=== PATIENT | female | born 1975 | race Hispanic/Latino ===

== ENCOUNTER 2020-01-12 22:06 | Emergency (ER) | payer OTHER ==
[~2020-01-12 22:06] MED LIST: 0.9% SODIUM CHLORIDE 1000 ML IV BAG IV ONE
[2020-01-12] MEDS ORDERED: KETOROLAC TROMETHAMINE 30MG/ML ONE (22:16)
[2020-01-12] MEDS ORDERED: CYCLOBENZAPRINE HCL 10 MG TABLET ONE (22:16)
[2020-01-12 22:31] LABS: BASOPHILS % (AUTO) 0.6 % (0.0-5.0); EOSINOPHILS % (AUTO) 2.9 % (0.0-8.0); HEMATOCRIT 37.7 % (36-48); LYMPHOCYTES % (AUTO) 32.7 % (21.0-51.0); MEAN CORPUSCULAR HEMOGLOBIN 26.6 pg (27.0-33.0); MEAN CORPUSCULAR HGB CONC 32.4 g/dL (32.0-36.0); MEAN CORPUSCULAR VOLUME 82.1 fL (79-99); MONOCYTES % (AUTO) 7.4 % (3.0-13.0); NEUTROPHILS % (AUTO) 56.1 % (40.0-77.0); PLATELET COUNT (AUTO) 327 K/uL (130-400); RED BLOOD CELL COUNT(AUTO) 4.59 MIL/uL (4.00-5.50); RED CELL DISTRIBUTION WIDTH 14.5 % (11.0-15.5); WHITE BLOOD COUNT (AUTO) 8.9 K/uL (4.8-10.8)
[2020-01-12 22:40] LABS: APPEARANCE,URINE Clear (CLEAR); BILIRUBIN,URINE Negative (NEGATIVE); COLOR,URINE Yellow (YELLOW); GLUCOSE, URINE (UA) >=1000 mg/dL (NEGATIVE); KETONES,URINE Trace mg/dL (NEGATIVE); LEUKOCYTE ESTERASE ,URINE Negative (NEGATIVE); NITRATE,URINE Negative (NEGATIVE); OCCULT BLOOD,URINE Negative (NEGATIVE); PH,URINE 5.5 (5.0-8.0); PROTEIN,URINE Negative (NEGATIVE)
[2020-01-12 22:41] LABS: CREATININE 0.9 mg/dL (0.5-1.5); POTASSIUM 3.6 mmol/L (3.5-5.1)
[2020-01-12 22:42] LABS: INR 0.89 (0.85-1.15); PARTIAL THROMBOPLASTIN TIME 23.3 SEC (26.3-35.5); PROTHROMBIN TIME 9.7 SEC (9.6-11.6)
[2020-01-12 22:46] LABS: ALBUMIN 3.5 g/dL (3.5-5.0); BILIRUBIN,TOTAL 0.4 mg/dL (0.2-1.0); TOTAL PROTEIN, SERUM 7.8 g/dL (6.0-8.3)
[2020-01-12 22:48] LABS: BACTERIA,URINE None Seen /HPF (None Seen); RBC,URINE None Seen /HPF (0-1); SQUAMOUS EPITHELIAL CELL,UR Few /HPF (0-2); WBC,URINE None Seen /HPF (0-1); YEAST,URINE BUDDING None Seen /HPF (None Seen)
== END 2020-01-13 00:37 | disposition home or self-care (01) ==
LOC: EDH 22:06
DX: M94.0 Chondrocostal junction syndrome [Tietze] (principal); E08.9 Diabetes mellitus due to underlying condition without complications; R03.0 Elevated blood-pressure reading, without diagnosis of hypertension; E66.01 Morbid (severe) obesity due to excess calories; Z90.49 Acquired absence of other specified parts of digestive tract
CPT/HCPCS: 36415; 71045; 80053; 81001; 82550; 83690; 84484; 85025; 85610; 85730; 93005; 96361; 96374; 99285; J1885; J7030; 96372

== ENCOUNTER 2020-03-18 21:36 | Emergency (ER) | payer OTHER, SELFPAY ==
[2020-03-18] MEDS ORDERED: ALBUTEROL INHALER 90MCG/INH IH ONE ×2 (22:17→22:20)
[2020-03-18] MEDS ORDERED: DEXAMETHASONE SOD PHOSPHATE 10MG/ML 1ML VIAL ONE (22:20)
[2020-03-18] MEDS ORDERED: ASPIRIN 325 MG TABLET ONE (22:21)
[2020-03-18] MEDS ORDERED: AZITHROMYCIN 250 MG TABLET PO ONE ×2 (22:22→22:32)
[2020-03-18] MEDS ORDERED: ACETAMINOPHEN-CODEINE 300/30MG TAB ONE (22:25)
[2020-03-18] MEDS ORDERED: NIFEDIPINE 10 MG CAP ONE (22:33)
[2020-03-18 23:23] LABS: BASOPHILS % (AUTO) 0.2 % (0.0-5.0); EOSINOPHILS % (AUTO) 2.4 % (0.0-8.0); HEMATOCRIT 39.4 % (36-48); LYMPHOCYTES % (AUTO) 34.9 % (21.0-51.0); MEAN CORPUSCULAR HEMOGLOBIN 26.2 pg (27.0-33.0); MEAN CORPUSCULAR HGB CONC 32.5 g/dL (32.0-36.0); MEAN CORPUSCULAR VOLUME 80.7 fL (79-99); MONOCYTES % (AUTO) 7.3 % (3.0-13.0); PLATELET COUNT (AUTO) 268 K/uL (130-400); RED BLOOD CELL COUNT(AUTO) 4.88 MIL/uL (4.00-5.50); RED CELL DISTRIBUTION WIDTH 14.5 % (11.0-15.5)
[2020-03-18 23:31] LABS: CREATININE 0.7 mg/dL (0.5-1.5); POTASSIUM 4.1 mmol/L (3.5-5.1)
[2020-03-18 23:36] LABS: ALBUMIN 3.5 g/dL (3.5-5.0); BILIRUBIN,TOTAL 0.2 mg/dL (0.2-1.0); TOTAL PROTEIN, SERUM 7.9 g/dL (6.0-8.3)
== END 2020-03-19 | disposition home or self-care (01) ==
LOC: EDH 21:36
DX: U07.1 COVID-19 (principal); E11.65 Type 2 diabetes mellitus with hyperglycemia; R03.0 Elevated blood-pressure reading, without diagnosis of hypertension; Z90.49 Acquired absence of other specified parts of digestive tract
CPT/HCPCS: 36415; 71045; 80053; 82550; 82948; 84484; 85025; 87426; 93005; 96374; 96375; 99285; J1100

== ENCOUNTER 2021-04-09 20:11 | Emergency (ER) | payer OTHER ==
[~2021-04-09] VITALS: Ht 152.4 cm; Wt 77.1 kg
[2021-04-09 20:58] LABS: BASOPHILS % (AUTO) 0.4 % (0.0-5.0); EOSINOPHILS % (AUTO) 3.4 % (0.0-8.0); HEMATOCRIT 37.4 % (36-48); LYMPHOCYTES % (AUTO) 24.3 % (21.0-51.0); MEAN CORPUSCULAR HEMOGLOBIN 25.8 pg (27.0-33.0); MEAN CORPUSCULAR HGB CONC 31.6 g/dL (32.0-36.0); MEAN CORPUSCULAR VOLUME 81.7 fL (79-99); MONOCYTES % (AUTO) 4.6 % (3.0-13.0); PLATELET COUNT (AUTO) 319 K/uL (130-400); RED BLOOD CELL COUNT(AUTO) 4.58 MIL/uL (4.00-5.50); RED CELL DISTRIBUTION WIDTH 14.8 % (11.0-15.5); WHITE BLOOD COUNT (AUTO) 12.2 K/uL (4.8-10.8)
[2021-04-09] MEDS ORDERED: ORPHENADRINE CITRATE 30 MG/ML ML IV ONE (21:00)
[2021-04-09] MEDS ORDERED: 0.9%NACL 1000ML 1,000 ML IV ONE (21:00)
[2021-04-09] MEDS ORDERED: KETOROLAC 30MG VIAL (30MG/ML) IV ONE (21:00)
[2021-04-09] MEDS ORDERED: PROMETHAZINE/CODEINE 6.25-10MG/5ML CUP PO ONE (21:00)
[2021-04-09 21:19] LABS: ALBUMIN 3.5 g/dL (3.5-5.0); BILIRUBIN,TOTAL 0.4 mg/dL (0.2-1.0); CREATININE 0.6 mg/dL (0.5-1.5); POTASSIUM 3.8 mmol/L (3.5-5.1); TOTAL PROTEIN, SERUM 7.9 g/dL (6.0-8.3)
[2021-04-09] MEDS ORDERED: LIDOCAINE HCL 2% VISCOUS 15 ML UDCUP PO ONE (23:30)
[2021-04-09] MEDS ORDERED: MAG/ALUM/SIMETH 30 ML UDCUP PO ONE (23:30)
[2021-04-09] MEDS ORDERED: CEFTRIAXONE 1G VIAL IVP ONE (23:30)
[2021-04-09] MEDS ORDERED: AZITHROMYCIN 500MG+NS 250ML 250 ML IV ONE (23:30)
[2021-04-09] MEDS ORDERED: AZITHROMYCIN 500MG+NS 250ML IVPB ONE (23:30)
[2021-04-10] MEDS ORDERED: ALBU8.5H8 IH (00:32)
[2021-04-10] MEDS ORDERED: AZIT250T9 PO (00:32)
[2021-04-10] MEDS ORDERED: BENZ-39 PO (00:32)
[2021-04-10] MEDS ORDERED: MELO7.5T12 PO (00:34)
[2021-04-10] MEDS ORDERED: CYCL-309 PO (00:34)
[2021-04-10 01:25] VITALS: BP 128/76
== END 2021-04-10 01:26 | disposition home or self-care (01) ==
LOC: EDH 20:11
DX: J18.9 Pneumonia, unspecified organism (principal); Z20.822 Contact with and (suspected) exposure to COVID-19; E11.9 Type 2 diabetes mellitus without complications; I10 Essential (primary) hypertension; Z79.1 Long term (current) use of non-steroidal anti-inflammatories (NSAID)
CPT/HCPCS: 36415; 71045; 80053; 84484; 85025; 87635; 87804 ×2; 93005; 96365; 96375; 99285; C9803; J0456; J0696; J1885; J2360; J7030; Q0169

== ENCOUNTER 2021-04-19 19:54 | Emergency (ER) | payer OTHER ==
[~2021-04-19] VITALS: Ht 160 cm; Wt 92.8 kg
[~2021-04-19 19:54] MED LIST changes: -0.9% SODIUM CHLORIDE 1000 ML IV BAG IV ONE; +ALBU8.5H8 IH; +AZIT250T9 PO; +BENZ-39 PO; +CYCL-309 PO; +MELO7.5T12 PO
[2021-04-19] MEDS ORDERED: 0.9%NACL 1000ML 1,000 ML IV ONE ×2 (19:55→22:30)
[2021-04-19 20:13] LABS: BASOPHILS % (AUTO) 0.2 % (0.0-5.0); HEMATOCRIT 38.2 % (36-48); LYMPHOCYTES % (AUTO) 6.8 % (21.0-51.0); MEAN CORPUSCULAR HEMOGLOBIN 25.9 pg (27.0-33.0); MEAN CORPUSCULAR HGB CONC 31.4 g/dL (32.0-36.0); MEAN CORPUSCULAR VOLUME 82.5 fL (79-99); MONOCYTES % (AUTO) 1.5 % (3.0-13.0); NEUTROPHILS % (AUTO) 90.8 % (40.0-77.0); PLATELET COUNT (AUTO) 402 K/uL (130-400); RED BLOOD CELL COUNT(AUTO) 4.63 MIL/uL (4.00-5.50); RED CELL DISTRIBUTION WIDTH 14.6 % (11.0-15.5); WHITE BLOOD COUNT (AUTO) 15.1 K/uL (4.8-10.8)
[2021-04-19 21:09] LABS: APPEARANCE,URINE Clear (CLEAR); BILIRUBIN,URINE Negative (NEGATIVE); COLOR,URINE Yellow (YELLOW); GLUCOSE, URINE (UA) 500 mg/dL (NEGATIVE); KETONES,URINE Trace mg/dL (NEGATIVE); LEUKOCYTE ESTERASE ,URINE Trace (NEGATIVE); NITRATE,URINE Negative (NEGATIVE); OCCULT BLOOD,URINE Large (NEGATIVE); PH,URINE 5.5 (5.0-8.0); PROTEIN,URINE Negative (NEGATIVE); UROBILINOGEN,URINE 0.2 mg/dL (0.2-1.0)
[2021-04-19 21:15] LABS: BACTERIA,URINE Few /HPF (None Seen); MUCUS,URINE Rare LPF (None Seen); SQUAMOUS EPITHELIAL CELL,UR Few /HPF (0-2)
[2021-04-19 21:15] LABS: CREATININE 0.7 mg/dL (0.5-1.5); POTASSIUM 4.1 mmol/L (3.5-5.1)
[2021-04-19 21:20] LABS: ALBUMIN 3.7 g/dL (3.5-5.0); BILIRUBIN,TOTAL 0.4 mg/dL (0.2-1.0); TOTAL PROTEIN, SERUM 7.9 g/dL (6.0-8.3)
[2021-04-19] MEDS ORDERED: MORPHINE 2 MG SYG IVP ONE (21:30)
[2021-04-19] MEDS ORDERED: ONDANSETRON 4MG INJ IVP ONE (21:30)
[2021-04-19] MEDS ORDERED: KETOROLAC 15MG/ML VIAL (15MG/ML) IV ONE (21:30)
[2021-04-19 22:40] VITALS: BP 155/87
[2021-04-19] MEDS: BENZONATATE 100 MG CAPSULE PO SCH ×2 (22:42→22:54)
[2021-04-19] MEDS ORDERED: KETOROLAC 15MG/ML VIAL (15MG/ML) ONE (22:46)
[2021-04-19] MEDS ORDERED: ONDANSETRON 4MG INJ ONE (22:46)
[2021-04-19] MEDS ORDERED: MORPHINE 2 MG SYG ONE (22:46)
[2021-04-19] MEDS ORDERED: BENZ-39 PO (23:16)
[2021-04-19] MEDS ORDERED: METH32TA PO (23:16)
[2021-04-19] MEDS ORDERED: ALBU8.5H8 IH (23:16)
[2021-04-19] MEDS ORDERED: PREDNISONE 20 MG TABLET PO ONE (23:30)
== END 2021-04-19 23:39 | disposition home or self-care (01) ==
LOC: EDH 19:54
DX: J40 Bronchitis, not specified as acute or chronic (principal); I10 Essential (primary) hypertension; E11.9 Type 2 diabetes mellitus without complications; Z20.822 Contact with and (suspected) exposure to COVID-19; Z79.899 Other long term (current) drug therapy
CPT/HCPCS: 36415; 71045; 71275; 80053; 81001; 83605; 84484; 85025; 85378; 87635; 93005; 96361; 96374; 96375; 99285; C9803; J1885; J2405; J7030

== ENCOUNTER 2021-11-16 11:15 | Emergency (ER) | payer OTHER ==
[~2021-11-16] VITALS: Ht 165.1 cm; Wt 90.7 kg
[~2021-11-16 11:15] MED LIST changes: +METH32TA PO
[2021-11-16] MEDS ORDERED: AZITHROMYCIN 250 MG TABLET PO ONE (11:30)
[2021-11-16] MEDS ORDERED: BUDESONIDE 0.5 MG/2 ML INH IH SCH (11:30)
[2021-11-16] MEDS ORDERED: IPRATROPIUM/ALBUTEROL SULFATE 3 ML SOLUTION IH ONE (11:30)
[2021-11-16] MEDS ORDERED: AMOX/CLAV 875/125MG TAB PO ONE (11:30)
[2021-11-16] MEDS ORDERED: GUAIFENESIN-CODEINE 5 ML SYRUP PO ONE (11:30)
[2021-11-16 11:54] LABS: BASOPHILS % (AUTO) 0.5 % (0.0-5.0); EOSINOPHILS % (AUTO) 4.7 % (0.0-8.0); HEMATOCRIT 41.1 % (36-48); LYMPHOCYTES % (AUTO) 22.8 % (21.0-51.0); MEAN CORPUSCULAR HEMOGLOBIN 26.6 pg (27.0-33.0); MEAN CORPUSCULAR HGB CONC 32.4 g/dL (32.0-36.0); MEAN CORPUSCULAR VOLUME 82.2 fL (79-99); MONOCYTES % (AUTO) 6.4 % (3.0-13.0); NEUTROPHILS % (AUTO) 65.4 % (40.0-77.0); PLATELET COUNT (AUTO) 304 K/uL (130-400); RED CELL DISTRIBUTION WIDTH 14.6 % (11.0-15.5); WHITE BLOOD COUNT (AUTO) 6.6 K/uL (4.8-10.8)
[2021-11-16 12:02] LABS: CREATININE 0.8 mg/dL (0.5-1.5); POTASSIUM 4.1 mmol/L (3.5-5.1)
[2021-11-16 12:07] LABS: ALBUMIN 3.6 g/dL (3.5-5.0); TOTAL PROTEIN, SERUM 7.9 g/dL (6.0-8.3)
[2021-11-16] MEDS ORDERED: ACETAMINOPHEN 500 MG TABLET PO ONE (12:30)
[2021-11-16] MEDS ORDERED: D-ME1POW16 PO (12:33)
[2021-11-16] MEDS ORDERED: ALBU1.252 IH (12:33)
[2021-11-16] MEDS ORDERED: AMOX1TAB16 PO (12:33)
[2021-11-16] MEDS ORDERED: FLUT1DIS IH (12:33)
[2021-11-16] MEDS ORDERED: ALBU8.5H8 IH (12:33)
[2021-11-16 12:58] VITALS: BP 129/76
== END 2021-11-16 13:03 | disposition home or self-care (01) ==
LOC: EDH 11:15
DX: J40 Bronchitis, not specified as acute or chronic (principal); E11.9 Type 2 diabetes mellitus without complications; E66.9 Obesity, unspecified; Z68.33 Body mass index [BMI] 33.0-33.9, adult; Z20.822 Contact with and (suspected) exposure to COVID-19; I10 Essential (primary) hypertension; Z79.899 Other long term (current) drug therapy; Z90.89 Acquired absence of other organs; Z98.890 Other specified postprocedural states
CPT/HCPCS: 99284; 71045; 87635; 84484; 80053; 85025; 36415; 94640; C9803

== ENCOUNTER 2023-01-24 10:55 | Emergency (ER) | payer OTHER ==
[~2023-01-24] VITALS: Ht 165.1 cm; Wt 86.2 kg
[~2023-01-24 10:55] MED LIST changes: +AEC81 PO; +ALBU1.252 IH; +ALBUHFA IH; +AMLO5TAB4 PO; -AZIT250T9 PO; -BENZ-39 PO; +FLUT1DIS IH; +LOSA50TA64 PO; -MELO7.5T12 PO; +METF-444 PO; -METH32TA PO; +METO25TA3 PO; +PRED20B PO
[2023-01-24 13:41] LABS: BASOPHILS # (AUTO) 0.02 K/uL (0.00-0.20); BASOPHILS % (AUTO) 0.4 % (0.0-5.0); EOSINOPHILS # (AUTO) 0.22 K/uL (0.00-0.70); EOSINOPHILS % (AUTO) 4.1 % (0.0-8.0); HEMATOCRIT 40.9 % (36-48); IMMATURE GRANULOCYTE ABSOLUTE 0.01 K/uL (0-1); LYMPHOCYTES # (AUTO) 1.6 K/uL (1.0-4.8); LYMPHOCYTES % (AUTO) 29.8 % (21.0-51.0); MEAN CORPUSCULAR HEMOGLOBIN 28.9 pg (27.0-33.0); MEAN CORPUSCULAR HGB CONC 33.5 g/dL (32.0-36.0); MEAN CORPUSCULAR VOLUME 86.3 fL (79-99); MONOCYTES # (AUTO) 0.4 K/uL (0.1-1.0); MONOCYTES % (AUTO) 7.2 % (3.0-13.0); NEUTROPHILS # (AUTO) 3.2 K/uL (1.8-7.7); NEUTROPHILS % (AUTO) 58.3 % (40.0-77.0); PLATELET COUNT (AUTO) 255 K/uL (130-400); RED BLOOD CELL COUNT(AUTO) 4.74 MIL/uL (4.00-5.50); WHITE BLOOD COUNT (AUTO) 5.4 K/uL (4.8-10.8)
[2023-01-24 13:51] LABS: ALBUMIN 3.6 g/dL (3.5-5.0); BILIRUBIN,TOTAL 0.6 mg/dL (0.2-1.0); CREATININE 0.5 mg/dL (0.5-1.5); POTASSIUM 3.9 mmol/L (3.5-5.1); TOTAL PROTEIN, SERUM 7.1 g/dL (6.0-8.3)
[2023-01-24] MEDS ORDERED: METH4TAB3 PO (15:23)
[2023-01-24] MEDS ORDERED: SOLU-MEDROL 125MG VIAL IVP ONE (15:30)
[2023-01-24 15:45] VITALS: BP 147/76; PULSE 63; RESP 18; O2SAT 99
== END 2023-01-24 15:45 | disposition home or self-care (01) ==
LOC: EDH 10:55
DX: S20.212A Contusion of left front wall of thorax, initial encounter (principal); S30.1XXA Contusion of abdominal wall, initial encounter; S19.80XA Other specified injuries of unspecified part of neck, initial encounter; I10 Essential (primary) hypertension; E11.9 Type 2 diabetes mellitus without complications; E66.9 Obesity, unspecified; Z98.890 Other specified postprocedural states; Z79.82 Long term (current) use of aspirin; Z79.84 Long term (current) use of oral hypoglycemic drugs; Z79.899 Other long term (current) drug therapy; Z90.49 Acquired absence of other specified parts of digestive tract; V89.2XXA Person injured in unspecified motor-vehicle accident, traffic, initial encounter; Y93.I9 Activity, other involving external motion; Y92.488 Other paved roadways as the place of occurrence of the external cause; Y99.8 Other external cause status
CPT/HCPCS: 99285; 72125; 96374; 84484; 80053; 85025; 36415; 71250; 74176; 93005; J2930

== ENCOUNTER 2023-02-08 16:14 | Emergency (ER) | payer OTHER ==
[~2023-02-08] VITALS: Ht 162.6 cm; Wt 85.3 kg
[~2023-02-08 16:14] MED LIST changes: +METH4TAB3 PO
[2023-02-08 16:28] VITALS: BP 161/100; PULSE 77; RESP 16; O2SAT 98
[2023-02-08] MEDS ORDERED: 0.9%NACL 1000ML 1,000 ML IV ONE (17:00)
[2023-02-08 17:28] LABS: BASOPHILS # (AUTO) 0.05 K/uL (0.00-0.20); BASOPHILS % (AUTO) 0.5 % (0.0-5.0); EOSINOPHILS # (AUTO) 0.26 K/uL (0.00-0.70); EOSINOPHILS % (AUTO) 2.5 % (0.0-8.0); HEMATOCRIT 41.1 % (36-48); IMMATURE GRANULOCYTE ABSOLUTE 0.02 K/uL (0-1); LYMPHOCYTES # (AUTO) 2.5 K/uL (1.0-4.8); LYMPHOCYTES % (AUTO) 24.5 % (21.0-51.0); MEAN CORPUSCULAR HEMOGLOBIN 28.5 pg (27.0-33.0); MEAN CORPUSCULAR HGB CONC 32.8 g/dL (32.0-36.0); MEAN CORPUSCULAR VOLUME 86.9 fL (79-99); MONOCYTES # (AUTO) 0.4 K/uL (0.1-1.0); MONOCYTES % (AUTO) 4.2 % (3.0-13.0); NEUTROPHILS % (AUTO) 68.1 % (40.0-77.0); PLATELET COUNT (AUTO) 292 K/uL (130-400); RED BLOOD CELL COUNT(AUTO) 4.73 MIL/uL (4.00-5.50); RED CELL DISTRIBUTION WIDTH 13.1 % (11.0-15.5); WHITE BLOOD COUNT (AUTO) 10.3 K/uL (4.8-10.8)
[2023-02-08] MEDS ORDERED: FAMOTIDINE 20MG VIAL IV ONE (17:30)
[2023-02-08 17:37] LABS: CARBON DIOXIDE 31 mmol/L (21-32); CHLORIDE 103 mmol/L (101-111); CREATININE 0.6 mg/dL (0.5-1.5); GLOMERULAR FILTR. RATE CALC 110 mL/min (>90); GLUCOSE,RANDOM 143 mg/dL (70-105); POTASSIUM 3.8 mmol/L (3.5-5.1); SODIUM SERUM 141 mmol/L (136-145); UREA NITROGEN, BLOOD 16 mg/dL (7-18)
[2023-02-08 17:41] LABS: ALANINE AMINOTRANSFERASE 31 U/L (12-78); ALBUMIN 3.7 g/dL (3.5-5.0); ASPARTATE AMINOTRANSFERASE 18 U/L (10-37); BILIRUBIN,TOTAL 0.6 mg/dL (0.2-1.0); TOTAL PROTEIN, SERUM 7.8 g/dL (6.0-8.3)
[2023-02-08 17:43] LABS: ACETAMINOPHEN < 1 mcg/mL (10-30); SALICYLATE < 2.8 mg/dL (2.8-20.0)
[2023-02-08] MEDS ORDERED: FAMO40TA7 PO (18:59)
== END 2023-02-08 19:31 | disposition home or self-care (01) ==
LOC: EDH 16:14
DX: T50.901A Poisoning by unspecified drugs, medicaments and biological substances, accidental (unintentional), initial encounter (principal); I10 Essential (primary) hypertension; E11.9 Type 2 diabetes mellitus without complications; Z79.82 Long term (current) use of aspirin; Z79.84 Long term (current) use of oral hypoglycemic drugs; Z79.899 Other long term (current) drug therapy; Z90.49 Acquired absence of other specified parts of digestive tract; Z98.890 Other specified postprocedural states; Z88.8 Allergy status to other drugs, medicaments and biological substances; Y92.89 Other specified places as the place of occurrence of the external cause
CPT/HCPCS: 99285; 96374; 71045; 83735; 80053; 85025; 36415; 93005; G0481; J3490; J7030

== ENCOUNTER 2023-09-23 10:52 | Emergency (ER) | payer OTHER ==
[~2023-09-23] VITALS: Ht 165.1 cm; Wt 90.7 kg
[~2023-09-23 10:52] MED LIST changes: +FAMO40TA7 PO
[2023-09-23 11:31] LABS: BASOPHILS # (AUTO) 0.05 K/uL (0.00-0.20); BASOPHILS % (AUTO) 0.7 % (0.0-5.0); EOSINOPHILS # (AUTO) 0.26 K/uL (0.00-0.70); EOSINOPHILS % (AUTO) 3.5 % (0.0-8.0); HEMATOCRIT 40.1 % (36-48); IMMATURE GRANULOCYTE ABSOLUTE 0.04 K/uL (0-1); LYMPHOCYTES # (AUTO) 1.9 K/uL (1.0-4.8); LYMPHOCYTES % (AUTO) 25.2 % (21.0-51.0); MEAN CORPUSCULAR HEMOGLOBIN 29.1 pg (27.0-33.0); MEAN CORPUSCULAR HGB CONC 33.4 g/dL (32.0-36.0); MONOCYTES # (AUTO) 0.4 K/uL (0.1-1.0); MONOCYTES % (AUTO) 4.8 % (3.0-13.0); NEUTROPHILS # (AUTO) 4.9 K/uL (1.8-7.7); NEUTROPHILS % (AUTO) 65.3 % (40.0-77.0); PLATELET COUNT (AUTO) 286 K/uL (130-400); RED BLOOD CELL COUNT(AUTO) 4.61 MIL/uL (4.00-5.50); RED CELL DISTRIBUTION WIDTH 13.4 % (11.0-15.5); WHITE BLOOD COUNT (AUTO) 7.5 K/uL (4.8-10.8)
[2023-09-23 11:34] LABS: CREATININE 0.6 mg/dL (0.5-1.0); POTASSIUM 3.7 mmol/L (3.5-5.1)
[2023-09-23 11:41] LABS: INR 0.97 (0.85-1.15); PROTHROMBIN TIME 10.5 SEC (9.6-11.6)
[2023-09-23 11:42] LABS: PARTIAL THROMBOPLASTIN TIME 25.4 SEC (26.3-35.5)
[2023-09-23 12:54] VITALS: BP 118/64; PULSE 70; RESP 18; O2SAT 97
[2023-09-23] MEDS: KETOROLAC 15MG/ML VIAL (15MG/ML) IV ONE (12:57)
== END 2023-09-23 13:12 | disposition home or self-care (01) ==
LOC: EDH 10:52
DX: R07.89 Other chest pain (principal); E11.9 Type 2 diabetes mellitus without complications; I10 Essential (primary) hypertension; Z79.82 Long term (current) use of aspirin; Z79.899 Other long term (current) drug therapy; Z90.49 Acquired absence of other specified parts of digestive tract; Z98.890 Other specified postprocedural states
CPT/HCPCS: 99285; 96374; 71045; 82550; 84484 ×2; 80048; 85025; 85610; 85730; 36415; 93005; J1885

== ENCOUNTER 2024-02-27 11:37 | Emergency (ER) | payer SELFPAY ==
[~2024-02-27] VITALS: Ht 162.6 cm; Wt 88.0 kg
--- NOTE | 2024-02-27 11:53 | ERN ---
General Chief Complaint: Flu Symptoms Stated Complaint: WEAKNESS,KURTZ Time Seen by MD: 11:37 History of Present Illness Initial Comments 48-year-old female presents to the ED for evaluation of weakness onset 1 day ago. Patient reports headache and flu-like symptoms, but denies any other associated symptoms at this time. Patient states symptoms began yesterday she took an Advil but that symptoms worsened today. Allergies: Coded Allergies: No Known Allergies (Unverified Allergy, Unknown, 11/03/20) Home Meds Active Scripts Famotidine (Famotidine) 40 Mg Tablet, 40 MG PO DAILY, #15 TAB Prov:SHALA ENGEL MD 02/08/23 Methylprednisolone (Medrol) 4 Mg Tab.ds.pk, 4 MG PO TID for 6 Days, #1 PACK Prov:WADE OLSON MD 01/24/23 Prednisone (Deltasone/Orasone [Bulk]) 20 Mg Tab, 40 MG PO DAILY, #14 TAB 0 Refills Prov:HEATHER KABA MD 10/18/22 Metoprolol Succinate (Toprol Xl) 25 Mg Tab.er.24h, 25 MG PO DAILY, #30 TAB 0 Refills Prov:HEATHER KABA MD 10/18/22 Aspirin (ASPIRIN 81 MG ECTAB) 81 Mg Ectab, 81 MG PO DAILY, #30 TAB.EC Prov:HEATHER KABA MD 10/18/22 Amlodipine Besylate (Norvasc 5Mg Tab) 5 Mg Tablet, 5 MG PO Q24H, #30 TAB 0 Refills Prov:HEATHER KABA MD 10/18/22 Albuterol Sulfate (Ventolin Hfa/Proventil Hfa/Proair Hfa) 90 Mcg/Puff Puff, 1 INH IH S3GIEAL PRN for SHORTNESS OF BREATH, #1 INH 1 Refill Prov:HEATHER KABA MD 10/18/22 Fluticasone/Salmeterol (Advair 100-50 Diskus) 1 Each Blst.w.dev, 1 EACH IH BID, #1 DISK 1 Refill Prov:HEATHER KABA MD 10/18/22 Albuterol Sulfate (Albuterol Sulfate) 1.25 Mg/3 Ml Vial.neb, 1.25 MG IH QIDP, #2 BOX Prov:JELANI SIEGEL 11/16/21 Albuterol Sulfate (Proair Hfa) 8.5 Gm Hfa.aer.ad, 2 PUFF IH QIDP, #1 INHALER Prov:JELANI SIEGEL 11/16/21 Cyclobenzaprine HCl (Cyclobenzaprine HCl) 10 Mg Tablet, 10 MG PO TIDP, #20 TAB 0 Refills Prov:PAM MENON MD 04/10/21 Reported Medications Losartan Potassium (Losartan Potassium) 50 Mg Tablet, 50 MG PO DAILY, TAB 10/14/22 Metformin HCl (Metformin HCl) 500 Mg Tablet, 500 MG PO BID, TAB 10/14/22 Past Medical History Past Medical History: Diabetes-Type II, Hypertension Medical History Other: Obese Past Surgical History: Appendectomy, Other Surgical History Other: LT LEG PAIN Family History Family History: Negative Social History Social History: Lives with family Female( History) : 6 Para: 4 Aborts: 2 ROS Dictation Constitutional: Positive for weakness Negative for fever,chills, and weight loss Eyes: Negative for injury, pain,redness, and discharge ENT: Negative for injury,pain or swelling Cardiovascular: Negative for chest pain, palpitations, and edema Respiratory: Negative for shortness of breath, cough, and wheezing, Abdomen/GI: Negative for abdominal pain, nausea, vomiting, diarrhea, and constipation Back: Negative for injury and pain : Negative for injury, bleeding and discharge MS/Extremity: Negative for injury and deformity Skin: Negative for rash, and discoloration Neuro: Positive for headache,Negative for numbness, tingling, and seizure Psych: Negative for suicide ideation, homicidal ideation, and hallucinations Physical Exam Physical Exam Dictation General: awake, alert, NAD Head/Face: Normocephalic, atraumatic Eyes: PERRL, EOMI, vision at baseline ENT: oral cavity clear, TMs clear, no signs of infection Neck: Trachea midline, supple, no nuchal rigidity Cardiovascular: RRR, normal S1/S2, No MRGs, no JVD Respiratory: CTAB, no respiratory distress, No rales or wheezes Abdomen: Soft, non-tender, non-distended, normal bowel sounds, no guarding or rebound. Skin: Warm, dry, normal turgor, no rash MS/Extremity: Pulses equal, no cyanosis, neurovascular intact, FROM Neuro: COAx4, GCS 15, strength 5/5, CN 2-12 intact, normal cerebellar exam, normal gait, Psych: Normal behavior, mood, and affect normal Results Laboratory and Microbiology Lab and Micro Result Laboratory Tests Test 02/27/24 11:48 02/27/24 13:35 02/27/24 13:52 Influenza Type A Antigen Negative For Type A Influenza Type B Antigen Negative For Type B SARS-CoV-2, RNA, NAAT NEGATIVE SARS CoV-2 Group A Streptococcus Rapid negative (NEGATIVE) Urine Color YELLOW (YELLOW) Urine Appearance CLEAR (CLEAR) Urine pH 5.5 (5.0-8.0) Urine Specific [place] 1.034 (1.001-1.031) Urine Protein NEGATIVE mg/dL (NEGATIVE) Urine Glucose (UA) NEGATIVE mg/dL (NEGATIVE) Urine Ketones NEGATIVE mg/dL (NEGATIVE) Urine Occult Blood NEGATIVE (NEGATIVE) Urine Nitrate NEGATIVE (NEGATIVE) Urine Bilirubin NEGATIVE mg/dL (NEGATIVE) Urine Urobilinogen 0.2 mg/dL (0.2-1.0) Urine Leukocyte Esterase NEGATIVE Kate/uL Urine RBC 0-1 /HPF (0-1) Urine WBC 0-1 /HPF (0-1) Urine Squamous Epithelial Cells RARE /HPF (0-2) Urine Calcium Oxalate Crystals RARE /LPF (None Seen) Urine Bacteria None /HPF (None Seen) Urine Hyaline Casts 2-5 /LPF (0-1 /LPF) H White Blood Count 10.5 K/uL (4.8-10.8) Red Blood Count 4.90 MIL/uL (4.00-5.50) Hemoglobin 13.8 g/dL (12.0-16.0) Hematocrit 42.9 % (36-48) Mean Corpuscular Volume 87.6 fL (79-99) Mean Corpuscular Hemoglobin 28.2 pg (27.0-33.0) Mean Corpuscular Hemoglobin Concent 32.2 g/dL (32.0-36.0) Red Cell Distribution Width 13.3 % (11.0-15.5) Platelet Count 301 K/uL (130-400) Mean Platelet Volume 10.6 fL (7.5-10.5) H Immature Granulocyte % (Auto) 0.3 % (0-1) Neutrophils (%) (Auto) 67.8 % (40.0-77.0) Lymphocytes (%) (Auto) 24.4 % (21.0-51.0) Monocytes (%) (Auto) 4.7 % (3.0-13.0) Eosinophils (%) (Auto) 2.4 % (0.0-8.0) Basophils (%) (Auto) 0.4 % (0.0-5.0) Neutrophils # (Auto) 7.1 K/uL (1.8-7.7) Lymphocytes # (Auto) 2.6 K/uL (1.0-4.8) Monocytes # (Auto) 0.5 K/uL (0.1-1.0) Eosinophils # (Auto) 0.25 K/uL (0.00-0.70) Basophils # (Auto) 0.04 K/uL (0.00-0.20) Absolute Immature Granulocyte (auto 0.03 K/uL (0-1) Nucleated Red Blood Cells 0.0 % (0.0-0.19) Sodium Level 140 mmol/L (136-145) Potassium Level 4.5 mmol/L (3.5-5.1) Chloride Level 102 mmol/L (101-111) Carbon Dioxide Level 32 mmol/L (21-32) Blood Urea Nitrogen 14 mg/dL (7-18) Creatinine 0.6 mg/dL (0.5-1.0) Glomerular Filtration Rate Calc 109 mL/min (>90) Random Glucose 125 mg/dL (70-105) H Total Calcium 9.2 mg/dL (8.5-10.1) Labs Reviewed?: Yes MDM MDM: Differential diagnosis: headache, viral syndrome, sinusitis Previous outside records reviewed: Old ER visits. Need for hospitalization: Patient does not meet criteria for hospitalization. Need for emergency major/minor surgery: No Patient's prior external medical records from other ER visits were reviewed by me as indicated. Prior testing and results from previous visits were reviewed. Prior tests were taken into account with medical decision making and resource utilization, independent historian/historians were used to obtain complete medical history. I independently interpreted the test that were performed, results were reviewed by me and considered findings on radiology if ordered. Medical management and examination interpretation discussions were had by me with other qualified healthcare professionals as indicated for the patient's care. ED Course Orders Procedure Category Date Status Time Cbc With Differential LAB 02/27/24 Complete 11:43 Basic Metabolic Panel LAB 02/27/24 Complete 11:43 Urinalysis LAB 02/27/24 Complete W/Microscopic 11:43 Covid Rna Naat LAB 02/27/24 Complete 11:43 Influenza Type A & B, LAB 02/27/24 Complete Rapid 11:43 0.9%Nacl 1000ml (Ns PHA 02/27/24 Complete 1000ml) 12:00 Prochlorperazine PHA 02/27/24 Complete 10mg/2ml Inj 12:00 Diphenhydramine Hcl PHA 02/27/24 Complete (Benadryl Inj) 12:00 Rapid (Group A Strep) LAB 02/27/24 Complete 11:50 Current Medications Medications (Trade) Dose Ordered Sig/Lupe Route PRN Reason Start Time Stop Time Status Last Admin Dose Admin Diphenhydramine HCl (BENAdryl INJ) 25 mg ONCE ONCE IV 02/27/24 12:00 02/27/24 12:01 DC 02/27/24 13:54 Prochlorperazine Edisylate (Compazine 10mg/ 2ml Inj) 10 mg ONCE ONCE IV 02/27/24 12:00 02/27/24 12:01 DC 02/27/24 13:54 Sodium Chloride 1,000 ml @ 0 mls/hr ONCE ONCE IV 02/27/24 12:00 02/27/24 12:01 DC 02/27/24 13:53 Vital Signs Date Time Temp Pulse Resp B/P (MAP) Pulse Ox O2 Delivery O2 Flow Rate FiO2 02/27/24 13:38 98.6 82 16 150/97 98 Room Air* 0 21 02/27/24 11:47 98.6 82 20 150/97 99 Room Air 0 DX & DISP Disposition: Discharge Departure Impression: Primary Impression: Headache Additional Impression: Sinusitis Condition: Stable Scripts Fluticasone Propionate (Flonase Nasal [place]) 50 Mcg/Actuation [place] 2 SPRAY NS DAILY for 14 Days, #16 GM 0 Refills Prov: NEY MAE MD 02/27/24 Amoxicillin/Potassium Clav (Amox Tr-K Clv 875-125 mg Tab) 875 Mg-125 Mg Tablet 1 TAB PO BID for 10 Days, #20 TAB 0 Refills Prov: NEY MAE MD 02/27/24 Additional Instructions: FOLLOW-UP WITH PRIMARY CARE PROVIDER IN 1 TO 2 DAYS. TAKE MEDICATIONS DIRECTED HERE IN THE EMERGENCY ROOM. OKAY TO CONTINUE HOME MEDICATIONS UNLESS OTHERWISE DISCUSSED DURING YOUR VISIT IN THE EMERGENCY ROOM TODAY. RETURN TO YOUR NEAREST EMERGENCY ROOM IF SYMPTOMS WORSEN OR IF THERE IS NO IMPROVEMENT. CALL 911 IF YOU NEED IMMEDIATE ASSISTANCE. TAKE TYLENOL [id number] NEEDED AND IF NO CONTRAINDICATIONS ARE PRESENT. INCREASE ORAL HYDRATION. A WOUND CULTURE OR URINE CULTURE WAS ORDERED HERE IN THE EMERGENCY ROOM DEPARTMENT PLEASE FOLLOW-UP WITH PRIMARY CARE PROVIDER AND ADVISE THEM TO GET REPEAT PORTS FROM OUR FACILITY. IF YOU HAD ANY DANIELE WRAP/SPLINTS THAT WERE APPLIED HERE, PLEASE DO NOT REMOVE THEM UNTIL YOU SEE YOUR PRIMARY CARE OR SPECIALTY. Referrals: Referrals: NONE (PCP) BRENT COKER MD Time of Disposition: 14:35 I have reviewed, & agreed with my scribe's, documentation. (Entered by Gregory Alfredo, acting as a scribe for Dr. Mae) I personally scribed for NEY MAE MD (TOM) on 02/27/24 at 11:53. Electronically submitted by Gregory Alfredo ([facility]). I personally scribed for NEY MAE MD (TOM) on 02/27/24 at 14:33. Electronically submitted by Gregory Alfredo ([email or web address]). NEY MAE MD Feb 27, 2024 11:53
[2024-02-27 12:19] LABS: SARS-CoV-2, RNA, NAAT NEGATIVE SARS CoV-2 (NEGATIVE)
[2024-02-27 12:22] LABS: INFLUENZA TYPE A Negative For Type A (NEGATIVE); INFLUENZA TYPE B Negative For Type B (NEGATIVE)
[2024-02-27 13:38] VITALS: BP 150/97; PULSE 82; RESP 16; TEMP 98.6; O2SAT 98
[2024-02-27] MEDS: 0.9%NACL 1000ML 1,000 ML IV ONE (13:53)
[2024-02-27] MEDS: DiphenhydrAMINE HCL 50 MG/ML VIAL IV ONE (13:54)
[2024-02-27] MEDS: PROCHLORPERAZINE 10MG/2ML INJ IV ONE (13:54)
[2024-02-27 14:01] LABS: BASOPHILS # (AUTO) 0.04 K/uL (0.00-0.20); BASOPHILS % (AUTO) 0.4 % (0.0-5.0); EOSINOPHILS # (AUTO) 0.25 K/uL (0.00-0.70); EOSINOPHILS % (AUTO) 2.4 % (0.0-8.0); HEMATOCRIT 42.9 % (36-48); IMMATURE GRANULOCYTE ABSOLUTE 0.03 K/uL (0-1); LYMPHOCYTES # (AUTO) 2.6 K/uL (1.0-4.8); LYMPHOCYTES % (AUTO) 24.4 % (21.0-51.0); MEAN CORPUSCULAR HEMOGLOBIN 28.2 pg (27.0-33.0); MEAN CORPUSCULAR HGB CONC 32.2 g/dL (32.0-36.0); MEAN CORPUSCULAR VOLUME 87.6 fL (79-99); MONOCYTES # (AUTO) 0.5 K/uL (0.1-1.0); MONOCYTES % (AUTO) 4.7 % (3.0-13.0); NEUTROPHILS # (AUTO) 7.1 K/uL (1.8-7.7); NEUTROPHILS % (AUTO) 67.8 % (40.0-77.0); PLATELET COUNT (AUTO) 301 K/uL (130-400); RED CELL DISTRIBUTION WIDTH 13.3 % (11.0-15.5); WHITE BLOOD COUNT (AUTO) 10.5 K/uL (4.8-10.8)
[2024-02-27 14:16] LABS: CREATININE 0.6 mg/dL (0.5-1.0); POTASSIUM 4.5 mmol/L (3.5-5.1)
[2024-02-27 14:18] LABS: APPEARANCE,URINE CLEAR (CLEAR); BILIRUBIN,URINE NEGATIVE (NEGATIVE); COLOR,URINE YELLOW (YELLOW); GLUCOSE, URINE (UA) NEGATIVE (NEGATIVE); KETONES,URINE NEGATIVE (NEGATIVE); LEUKOCYTE ESTERASE ,URINE NEGATIVE Leu/uL (NEGATIVE); NITRATE,URINE NEGATIVE (NEGATIVE); OCCULT BLOOD,URINE NEGATIVE (NEGATIVE); PH,URINE 5.5 (5.0-8.0); PROTEIN,URINE NEGATIVE (NEGATIVE); UROBILINOGEN,URINE 0.2 mg/dL (0.2-1.0)
[2024-02-27 14:23] LABS: CALCIUM OXALATE CRYSTALS,UR RARE /LPF (None Seen); MUCUS,URINE RARE LPF (None Seen); RBC,URINE 0-1 /HPF (0-1); SQUAMOUS EPITHELIAL CELL,UR RARE /HPF (0-2); WBC,URINE 0-1 /HPF (0-1)
[2024-02-27] MEDS ORDERED: FLUT16H NS (14:36)
[2024-02-27] MEDS ORDERED: AMOX1TAB16 PO (14:36)
== END 2024-02-27 14:44 | disposition home or self-care (01) ==
LOC: EDH 11:37
DX: R51.9 Headache, unspecified (principal); J32.9 Chronic sinusitis, unspecified; E11.9 Type 2 diabetes mellitus without complications; E66.9 Obesity, unspecified; I10 Essential (primary) hypertension; Z79.51 Long term (current) use of inhaled steroids; Z79.52 Long term (current) use of systemic steroids; Z79.82 Long term (current) use of aspirin; Z79.84 Long term (current) use of oral hypoglycemic drugs; Z79.899 Other long term (current) drug therapy; Z90.49 Acquired absence of other specified parts of digestive tract; Z20.822 Contact with and (suspected) exposure to COVID-19
CPT/HCPCS: 99284; 96374; 87635; 96361; 96375; 80048; 85025; 87880; 87804 ×2; 81001; 36415; J1200; J7030; J0780

== ENCOUNTER 2024-11-24 09:05 | Emergency (ER) | payer SELFPAY ==
[~2024-11-24] VITALS: Ht 162.6 cm; Wt 88.5 kg
[~2024-11-24 09:05] MED LIST changes: +AMOX1TAB16 PO; +CYCL10TA16 PO; +FLUT16H NS
--- NOTE | 2024-11-24 09:31 | ERN ---
General Chief Complaint: Cough Stated Complaint: COUGH Time Seen by MD: 09:06 Source: patient History of Present Illness Initial Comments This patient is a 49-year-old female who presented to the ED with a chief complaint of cough and chest pain. Patient stated that she starting having flu- like symptoms 4 days ago with chills and cough and it got worsened last night when patient developed chest pain. She has nonradiating pain which is pleuritic in nature. Patient also complained of mild epigastric pain. Cough is nonproductive in nature and bowel movements are unremarkable, negative for diarrhea. Timing/Duration: 24 hours Severity: mild, moderate Associated Symptoms: chest pain, cough Allergies: Coded Allergies: No Known Allergies (Unverified Allergy, Unknown, 11/03/20) Home Meds Active Scripts Cyclobenzaprine HCl (Flexeril) 10 Mg Tab, 10 MG PO TID for muscle sstiffness, #14 TAB 0 Refills Prov:AZUL MCCORD [employer]DING DESIGNER 09/30/24 Fluticasone Propionate (Flonase Nasal [place]) 50 Mcg/Actuation [place], 2 SPRAY NS DAILY for 14 Days, #16 GM 0 Refills Prov:NEY MAE MD 02/27/24 Amoxicillin/Potassium Clav (Amox Tr-K Clv 875-125 mg Tab) 875 Mg-125 Mg Tablet, 1 TAB PO BID for 10 Days, #20 TAB 0 Refills Prov:NEY MAE MD 02/27/24 Famotidine (Famotidine) 40 Mg Tablet, 40 MG PO DAILY, #15 TAB Prov:SHALA ENGEL MD 02/08/23 Methylprednisolone (Medrol) 4 Mg Tab.ds.pk, 4 MG PO TID for 6 Days, #1 PACK Prov:WADE OLSON MD 01/24/23 Prednisone (Deltasone/Orasone [Bulk]) 20 Mg Tab, 40 MG PO DAILY, #14 TAB 0 Refills Prov:HEATHER KABA MD 10/18/22 Metoprolol Succinate (Toprol Xl) 25 Mg Tab.er.24h, 25 MG PO DAILY, #30 TAB 0 Refills Prov:HEATHER KABA MD 10/18/22 Aspirin (ASPIRIN 81 MG ECTAB) 81 Mg Ectab, 81 MG PO DAILY, #30 TAB.EC Prov:HEATHER KABA MD 10/18/22 Amlodipine Besylate (Norvasc 5Mg Tab) 5 Mg Tablet, 5 MG PO Q24H, #30 TAB 0 Refills Prov:HEATHER KABA MD 10/18/22 Albuterol Sulfate (Ventolin Hfa/Proventil Hfa/Proair Hfa) 90 Mcg/Puff Puff, 1 INH IH F0ZHERS PRN for SHORTNESS OF BREATH, #1 INH 1 Refill Prov:HEATHER KABA MD 10/18/22 Fluticasone/Salmeterol (Advair 100-50 Diskus) 1 Each Blst.w.dev, 1 EACH IH BID, #1 DISK 1 Refill Prov:HEATHER KABA MD 10/18/22 Albuterol Sulfate (Albuterol Sulfate) 1.25 Mg/3 Ml Vial.neb, 1.25 MG IH QIDP, #2 BOX Prov:JELANI SIEGEL 11/16/21 Albuterol Sulfate (Proair Hfa) 8.5 Gm Hfa.aer.ad, 2 PUFF IH QIDP, #1 INHALER Prov:JELANI SIEGEL 11/16/21 Cyclobenzaprine HCl (Cyclobenzaprine HCl) 10 Mg Tablet, 10 MG PO TIDP, #20 TAB 0 Refills Prov:PAM MENON MD 04/10/21 Reported Medications Losartan Potassium (Losartan Potassium) 50 Mg Tablet, 50 MG PO DAILY, TAB 10/14/22 Metformin HCl (Metformin HCl) 500 Mg Tablet, 500 MG PO BID, TAB 10/14/22 Past Medical History Past Medical History: Hypertension Medical History Other: Obese Past Surgical History: None Surgical History Other: LT LEG PAIN Family History Family History: Negative Social History Social History: Lives with family Female( History) : 6 Para: 4 Aborts: 2 Constitutional: (+) chills; (-) diaphoresis, (-) fever, (-) malaise, (-) weakness, (-) other documentation EENTM: (-) eye pain, (-) blurred vision, (-) tearing, (-) double vision, (-) ear pain, (-) ear discharge, (-) nose pain, (-) nose congestion, (-) throat pain, (-) Throat swelling, (-) mouth pain, (-) tooth pain, (-) mouth swelling, (-) other documentation Respiratory: (+) cough, (+) wheezing; (-) orthopnea, (-) short of breath, (-) stridor, (-) other documentation Cardiovascular: (+) chest pain; (-) edema, (-) palpitations, (-) syncope, (-) dyspnea on exertion, (-) other documentation Review of Systems: was completed, & the rest were negative. Nurses Notes Reviewed: Yes Physical Exam General Appearance: (-) no apparent distress, (-) apparent distress, (-) mild distress, (-) moderate distress, (-) severe distress, (-) thin, (-) obese, (-) combative, (-) cachetic, (-) anxious, (-) other documentation Orientation: (+) alert, (+) oriented x 3 Head/Face Trauma: No Ear, Nose, Throat: (-) hearing grossly normal, (-) normal ENT inspection, (-) moist mucous membraine, (-) normal pharynx, (-) normal TM, (-) abnormal TM, (-) pharyngeal erythema, (-) sinus drainange, (-) sinus pain, (-) tonsillar exudate, (-) tonsillar swelling, (-) nasal drip, (-) nasal congestion, (-) hearing decreased, (-) dry mucous membraine, (-) other documentation Neck: (-) normal inspection, (-) supple, (-) full range of motion, (-) no JVD, (-) non-tender, (-) no bruit, (-) tender, (-) limited range of motion, (-) tender lateral, (-) tender midline, (-) thyromegaly, (-) lymphadenopathy, (-) masses, (-) carotid bruit, (-) other documentaion Respiratory: (+) wheezing Heart: (+) regular; (-) no gallop, (-) murmur, (-) irregular, (-) bradycardia, (-) tachycardia, (-) systolic murmur, (-) diastolic murmur, (-) extra beats, (-) friction rub, (- ) gallop/S3, (-) gallop/S4, (-) other documentation Vascular: (-) no edema, (-) normal peripheral pulse, (-) no JVD, (-) abdominal aorta, (-) abnormal peripheral pulse, (-) carotid bruit, (-) edema, (-) JVD, (-) varicose vein, (-) other documentation Gastrointestinal: (-) soft, (-) non-tender, (-) no organomegaly, (-) bowel sound present, (-) distended, (-) tender, (-) abnormal bowel sounds, (-) bowel sound absent, (-) rebound, (-) martinez's sign, (-) guarding, (-) hernia, (-) mass, (-) pulsatile mass, (-) CVA tenderness, (-) hepatomegaly, (-) spleenomegaly, (-) other documentation, (-) McBerney's, (-) other documentation Skin: (-) normal color, (-) warm/dry, (-) cyanosis, (-) diaphoresis, (-) jaundice, (-) mottled, (-) pallor, (-) rash Lymphatic: (-) no adenopathy, (-) axilla node tender (R), (-) axilla node tender (L), (-) inguinal node tender (R), (-) inguinal node tender (L), (-) other Results Laboratory and Microbiology Lab and Micro Result Laboratory Tests Test 11/24/24 09:09 11/24/24 09:30 11/24/24 09:32 11/24/24 10:00 White Blood Count 7.8 K/uL (4.8-10.8) Red Blood Count 4.63 MIL/uL (4.00-5.50) Hemoglobin 13.3 g/dL (12.0-16.0) Hematocrit 40.2 % (36-48) Mean Corpuscular Volume 86.8 fL (79-99) Mean Corpuscular Hemoglobin 28.7 pg (27.0-33.0) Mean Corpuscular Hemoglobin Concent 33.1 g/dL (32.0-36.0) Red Cell Distribution Width 13.0 % (11.0-15.5) Platelet Count 290 K/uL (130-400) Mean Platelet Volume 10.5 fL (7.5-10.5) Immature Granulocyte % (Auto) 0.3 % (0-1) Neutrophils (%) (Auto) 67.2 % (40.0-77.0) Lymphocytes (%) (Auto) 23.7 % (21.0-51.0) Monocytes (%) (Auto) 4.0 % (3.0-13.0) Eosinophils (%) (Auto) 4.3 % (0.0-8.0) Basophils (%) (Auto) 0.5 % (0.0-5.0) Neutrophils # (Auto) 5.3 K/uL (1.8-7.7) Lymphocytes # (Auto) 1.9 K/uL (1.0-4.8) Monocytes # (Auto) 0.3 K/uL (0.1-1.0) Eosinophils # (Auto) 0.34 K/uL (0.00-0.70) Basophils # (Auto) 0.04 K/uL (0.00-0.20) Absolute Immature Granulocyte (auto 0.02 K/uL (0-1) Nucleated Red Blood Cells 0.0 % (0.0-0.19) Sodium Level 135 mmol/L (136-145) L Potassium Level 3.8 mmol/L (3.5-5.1) Chloride Level 101 mmol/L (101-111) Carbon Dioxide Level 27 mmol/L (21-32) Blood Urea Nitrogen 13 mg/dL (7-18) Creatinine 0.6 mg/dL (0.5-1.0) Glomerular Filtration Rate Calc 109 mL/min (>90) Random Glucose 230 mg/dL (70-105) H Total Calcium 8.8 mg/dL (8.5-10.1) Total Bilirubin 0.8 mg/dL (0.2-1.0) Aspartate Amino Transf (AST/SGOT) 24 U/L (10-37) Alanine Aminotransferase (ALT/SGPT) 39 U/L (12-78) Alkaline Phosphatase 138 U/L (50-136) H Troponin I High Sensitivity 5 ng/L (4-50) Total Protein 7.3 g/dL (6.0-8.3) Albumin 3.4 g/dL (3.5-5.0) L Lipase 22 U/L (16-77) Urine Color YELLOW (YELLOW) Urine Appearance CLEAR (CLEAR) Urine pH 5.5 (5.0-8.0) Urine Specific [place] 1.029 (1.001-1.031) Urine Protein NEGATIVE mg/dL (NEGATIVE) Urine Glucose (UA) 300 mg/dL (NEGATIVE) H Urine Ketones NEGATIVE mg/dL (NEGATIVE) Urine Occult Blood NEGATIVE (NEGATIVE) Urine Nitrate NEGATIVE (NEGATIVE) Urine Bilirubin NEGATIVE mg/dL (NEGATIVE) Urine Urobilinogen 0.2 mg/dL (0.2-1.0) Urine Leukocyte Esterase NEGATIVE Kate/uL Urine RBC 0-1 /HPF (0-1) Urine WBC 2-5 /HPF (0-1) H Urine Squamous Epithelial Cells FEW /HPF (0-2) Urine Bacteria RARE /HPF (None Seen) Influenza Type A Antigen Negative For Type A Influenza Type B Antigen Negative For Type B SARS-CoV-2, RNA, NAAT NEGATIVE SARS CoV-2 Labs Reviewed?: Yes EKG/XRAY/US/CT/MRI EKG Comment EK11/24/2024 09:26:22 Rate 66. Sinus rhythm [place] 157. QT 389. QRSD 91. [place]: P 25. QRS 31. T 51. Negative for ST segment elevation X-RAY Comment Chest x-ray single view done on 11/24/2024 9:50 a.m. 3:23 a.m. showed mild hyperinflation of lungs with mild signs of bronchitis MDM MDM: Differential diagnosis: - Acute bronchitis versus upper respiratory tract infection Rationale: Tests considered and ordered secondary to shared decision making include: - Chest x-ray single view was done to rule out any acute inflammatory process, lobar congestion or signs concerning for pneumonia. - Cardiac workup was negative with unremarkable troponins. - Influenza and COVID tests were negative - CBC was unremarkable for leukocytosis. - CMP was unremarkable for any signs of transaminitis. Previous outside records reviewed: Old ER visits. Risk of complication and/or morbidity or mortality of patient management: None Medications-Per medication reconciliation - Patient was given DuoNeb, albuterol and Solu-Medrol for her wheezing. She was also given Tylenol-codeine for her pain and coughing. Her symptoms improved remarkably after receiving the medication. ED Course Orders Procedure Category Date Status Time Chest 1vw RAD 11/24/24 Resulted 09:17 Comprehensive LAB 11/24/24 Complete Metabolic Panel 09:17 Cbc With Differential LAB 11/24/24 Complete 09:17 Bedside Troponin-I LAB.ER 11/24/24 In Process (Poc) 09:17 12 Lead Ekg Tracing- EKG 11/24/24 Complete Technical 09:17 Influenza Type A & B, LAB 11/24/24 Complete Rapid 09:17 Lipase LAB 11/24/24 Complete 09:09 Troponin I High LAB 11/24/24 Complete Sensitivity 10:03 Covid Rna Naat LAB 11/24/24 Complete 10:03 Urinalysis LAB 11/24/24 Complete W/Microscopic 10:07 Ipratropium/Albuterol PHA 11/24/24 Complete Neb (Duoneb) 10:30 Methylprednisolone PHA 11/24/24 Complete Succ 125mg (Solu-Medr 10:30 Albuterol 0.083% PHA 11/24/24 Complete 2.5mg/3ml (Proventil 11:00 Acetaminophen-Codeine PHA 11/24/24 Complete Elixer (Tylenol-Co 10:59 Current Medications Medications (Trade) Dose Ordered Sig/Lupe Route PRN Reason Start Time Stop Time Status Last Admin Dose Admin Acetaminophen/ Codeine Phosphate (TYLenol-coDEINE (120/12MG 5ML) ELIXIR) 10 ml ONCE STAT PO 11/24/24 10:59 11/24/24 11:02 DC 11/24/24 11:32 Albuterol (DUOneb) 1 UDVIAL ONCE ONCE IH 11/24/24 10:30 11/24/24 10:31 DC 11/24/24 10:40 Albuterol Sulfate (Proventil 0.083% 2.5mg/3ml) 2 mg ONCE ONCE IH 11/24/24 11:00 11/24/24 11:01 DC 11/24/24 11:48 Methylprednisolone Sodium Succinate (Solu-medROL 125MG) 125 mg ONCE ONCE IVP 11/24/24 10:30 11/24/24 10:31 DC 11/24/24 10:25 Vital Signs Date Time Temp Pulse Resp B/P (MAP) Pulse Ox O2 Delivery O2 Flow Rate FiO2 11/24/24 11:50 69 18 11/24/24 10:47 97.9 64 19 174/90 99 Room Air* 0 21 11/24/24 10:30 66 18 11/24/24 09:06 98.2 68 16 158/92 98 Room Air 0 HEART Score Response (Comments) Value History: Low suspicion (0) 0 EKG: Normal 0 Age: 45-65yrs (+1) 1 Risk Factors: No known risk factors (0) 0 Initial Troponin: Normal limit (0) 0 HEART Score Risk: Low Risk for MACE (1-3) Total 1 CHADS-VASc Score Response (Comments) Value Sex: Female (+1) 1 Antithrombotic Therapy Recommendations: No Therapy Needed (0-1) Total 1 DX & DISP Disposition: Discharge Departure Impression: Primary Impression: URI, acute Additional Impression: Bronchitis Condition: Stable Scripts Prednisone (Prednisone) 5 Mg Tablet 1 TAB PO DAILY for 7 Days, #7 TAB 0 Refills Prov: NEY MAE MD 11/24/24 Albuterol Sulfate (Ventolin Hfa) 90 Mcg Hfa.aer.ad 2 PUFF IH Q4HPRN PRN for wheezing for 30 Days, #18 GM 0 Refills Prov: NEY MAE MD 11/24/24 Additional Instructions: FOLLOW-UP WITH PRIMARY CARE PROVIDER IN 1 TO 2 DAYS. TAKE MEDICATIONS DIRECTED HERE IN THE EMERGENCY ROOM. OKAY TO CONTINUE HOME MEDICATIONS UNLESS OTHERWISE DISCUSSED DURING YOUR VISIT IN THE EMERGENCY ROOM TODAY. RETURN TO YOUR NEAREST EMERGENCY ROOM IF SYMPTOMS WORSEN OR IF THERE IS NO IMPROVEMENT. CALL 911 IF YOU NEED IMMEDIATE ASSISTANCE. TAKE TYLENOL [id number] NEEDED AND IF NO CONTRAINDICATIONS ARE PRESENT. INCREASE ORAL HYDRATION. A WOUND CULTURE OR URINE CULTURE WAS ORDERED HERE IN THE EMERGENCY ROOM DEPARTMENT PLEASE FOLLOW-UP WITH PRIMARY CARE PROVIDER AND ADVISE THEM TO GET REPORTS FROM OUR FACILITY. IF YOU HAD ANY DANIELE WRAP/SPLINTS THAT WERE APPLIED HERE, PLEASE DO NOT REMOVE THEM UNTIL YOU SEE YOUR PRIMARY CARE OR SPECIALTY. Referrals: Referrals: SELF,REFERRAL (PCP) BRENT COKER MD, ISABEL MD Nov 24, 2024 09:31 RUSSELL DELGADO MD Nov 24, 2024 09:42
[2024-11-24 09:33] LABS: IMMATURE GRANULOCYTE ABSOLUTE 0.02 K/uL (0-1); NUCLEATED RED BLOOD CELLS 0.0 % (0.0-0.19); PLATELET COUNT (AUTO) 290 K/uL (130-400); RED BLOOD CELL COUNT(AUTO) 4.63 MIL/uL (4.00-5.50); RED CELL DISTRIBUTION WIDTH 13.0 % (11.0-15.5); WHITE BLOOD COUNT (AUTO) 7.8 K/uL (4.8-10.8)
[2024-11-24 09:42] LABS: CREATININE 0.6 mg/dL (0.5-1.0); GLOMERULAR FILTR. RATE CALC 109.0 mL/min (>90); GLUCOSE,RANDOM 230.0 mg/dL (70-105); SODIUM SERUM 135.0 mmol/L (136-145); UREA NITROGEN, BLOOD 13.0 mg/dL (7-18)
[2024-11-24 09:47] LABS: ASPARTATE AMINOTRANSFERASE 24.0 U/L (10-37); TOTAL PROTEIN, SERUM 7.3 g/dL (6.0-8.3)
--- NOTE | 2024-11-24 09:51 | NUR ---
XRAY CALLED AT THIS TIME TO NOTIFY PT IS READY FOR EXAM, STATED THEY WILL BE HERE SHORTLY TO DO EXAM./ABNER
[2024-11-24 10:06] LABS: INFLUENZA TYPE A Negative For Type A (NEGATIVE); INFLUENZA TYPE B Negative For Type B (NEGATIVE)
[2024-11-24 10:20] LABS: APPEARANCE,URINE CLEAR (CLEAR); GLUCOSE, URINE (UA) 300 mg/dL (NEGATIVE); LEUKOCYTE ESTERASE ,URINE NEGATIVE Leu/uL (NEGATIVE); NITRATE,URINE NEGATIVE (NEGATIVE); OCCULT BLOOD,URINE NEGATIVE (NEGATIVE)
[2024-11-24 10:22] LABS: SQUAMOUS EPITHELIAL CELL,UR FEW /HPF (0-2)
--- NOTE | 2024-11-24 10:28 | HMCIMG ---
CHEST 1VW REASON: Chest pain and cough COMPARISON: Study from 09/30/2024 is available. FINDINGS: Single view of the chest was obtained. Lungs are clear. Heart size is normal. There is no pulmonary vascular congestion. Mediastinum and bony thorax appear unremarkable. IMPRESSION: 1. Normal single view chest x-ray.
[2024-11-24 10:30] VITALS: PULSE 66; RESP 18
[2024-11-24 10:31] LABS: SARS-CoV-2, RNA, NAAT NEGATIVE SARS CoV-2 (NEGATIVE)
--- NOTE | 2024-11-24 10:45 | EKG ---
[facility] Test Date: 2024-11-24 Test Time: 09:26:22 Pat Name: SHIV TERRAZAS Department: ED Room: Gender: F [place] Supervisor: [id number] : 1975 Requested By: RUSSLEL MARCUS Order Number: [id number] Reading MD: Siddhartha Mueller Measurements Intervals [place] Rate: 66 P: 25 CA: 157 QRS: 31 QRSD: 91 T: 51 QT: 389 QTc: 408 Interpretive Statements Sinus rhythm Compared to ECG 09/30/2024 17:51:43 No significant changes Electronically Signed On 11-25-2024 07:26:32 CDT by Siddhartha Mueller Please click the below link to view image of tracing.
[2024-11-24] MEDS: ALBUTEROL 0.083% 2.5 MG/3 ML INH IH ONE (11:08)
[2024-11-24] MEDS: acetaMINOPHEN/coDEINE 120/12MG 5ML PO STA (11:32)
[2024-11-24 11:50] VITALS: PULSE 69; RESP 18
[2024-11-24] MEDS ORDERED: PRED5TAB PO (12:25)
[2024-11-24] MEDS ORDERED: ALBU18HF7 IH (12:25)
[2024-11-24 12:39] VITALS: BP 152/71; PULSE 65; RESP 18; TEMP 97.9; O2SAT 98
== END 2024-11-24 13:01 | disposition home or self-care (01) ==
LOC: EDH 09:05
DX: J06.9 Acute upper respiratory infection, unspecified (principal); J40 Bronchitis, not specified as acute or chronic; I10 Essential (primary) hypertension; E66.9 Obesity, unspecified; Z79.51 Long term (current) use of inhaled steroids; Z79.52 Long term (current) use of systemic steroids; Z79.82 Long term (current) use of aspirin; Z79.84 Long term (current) use of oral hypoglycemic drugs; Z79.899 Other long term (current) drug therapy; Z68.33 Body mass index [BMI] 33.0-33.9, adult
CPT/HCPCS: 99285; 96374; 71045; 87635; 84484; 80053; 83690; 85025; 87804 ×2; 81001; 36415; 93005; 94640 ×2; J2919